=== PATIENT | female | born 1965 | race Caucasian/White ===

== ENCOUNTER 2020-11-08 17:06 | Emergency (ER) | payer MEDICARE, OTHER ==
[~2020-11-08 17:06] MED LIST: ADVAIR HFA 115-28 GM INH; ADVAIR HFA 115/12 GM INH; ALBUTEROL1.25 MG/3 INH; ASPIR-TRIN325 MG PO; BIOTIN10 MG PO; BOTOX INJ 1100 UNITS IM; CALAN SR180 MG PO; CETIRIZINE HCL10 M1 PO; COLACE 100MG C100 MG PO; CYMBALTA 30 MG30 MG PO; CYMBALTA60 MG PO; CYTOTEC 100 M100 MCG PO; ECOTRIN81 MG PO; EMGALITY S120 MG/1 M SQ; HUMIRA40 MG/0.8 SQ; IMDUR ER TAB 3030 MG PO; IMITREX100 MG PO; IMITREX6 MG/0.51 SC; LEFLUNOMIDE10 MG PO; LEVOTHYROXINE25 MCG PO; LOPRESSOR 25 MG25 MG PO; LOPRESSOR HCT1 EACH PO; NEURONTIN 300300 MG PO; NITROSTAT0.4 MG SL; NORCO 10-325 T1 EACH PO; OMEPRAZOLE20 M1 PO; ONE DAILY FOR1 EAC3 PO; PATADAY2.5 ML OP; PHENERGAN 25 MG25 M1 PO; PLAQUENIL200 MG PO; PRAVACHOL20 MG PO; PROAIR HFA8.5 GM INH; PROTONIX40 MG PO; RANEXA1000 MG PO; REGLAN10 MG PO; SINGULAIR10 MG PO; TRICOR48 MG PO; VALIUM 2 MG TAB2 MG PO; VENTOLIN/PROVE0.5 ML INH; VIBRAMYCIN100 MG PO; ZANAFLEX4 MG PO; ZANTAC150 MG PO; ZOFRAN 8 MG TAB8 MG PO; ZOFRAN4 MG PO
[2020-11-08 18:15] LABS: HEMOGLOBIN 12.7 gm/dl (12.3-15.3); RED BLOOD COUNT 3.88 M/UL (4.00-5.10); WHITE BLOOD COUNT 5.5 K/UL (4.5-11.0)
[2020-11-08 18:41] LABS: BUN/CREATININE RATIO 13 (0-10)
== END 2020-11-08 22:43 | disposition home or self-care (01) ==
LOC: ER1 17:06
PROVIDERS: Physician Assistant
DX: R06.02 Shortness of breath (principal); R22.32 Localized swelling, mass and lump, left upper limb; R79.89 Other specified abnormal findings of blood chemistry; Z20.822 Contact with and (suspected) exposure to COVID-19; I50.9 Heart failure, unspecified; G43.909 Migraine, unspecified, not intractable, without status migrainosus; Z88.0 Allergy status to penicillin
CPT/HCPCS: 71045; 80053; 83880; 85025; 85379; 96372; 99284; J1650; Q9967; U0002

== ENCOUNTER → 2020-11-09 | Outpatient (CLI) | payer MEDICARE, OTHER ==
[~2020-11-09] MED LIST changes: +ZOFRAN ODT 4 MG4 MG PO
== END ==
LOC: US 14:37
DX: R22.33 Localized swelling, mass and lump, upper limb, bilateral (principal)
CPT/HCPCS: 93970

== ENCOUNTER 2020-12-11 12:24 | Emergency (ER) | payer MEDICARE, OTHER ==
[~2020-12-11 12:24] MED LIST changes: -ZOFRAN ODT 4 MG4 MG PO
[2020-12-11 13:18] LABS: HEMOGLOBIN 15.9 gm/dl (12.3-15.3); RED BLOOD COUNT 4.79 M/UL (4.00-5.10); WHITE BLOOD COUNT 9.7 K/UL (4.5-11.0)
[2020-12-11 13:38] LABS: BUN/CREATININE RATIO 31 (0-10)
[2020-12-11] MEDS ORDERED: ZOFRAN ODT 4 MG4 MG PO (16:54)
== END 2020-12-11 17:30 | disposition home or self-care (01) ==
LOC: ER1 12:24
PROVIDERS: Physician Assistant Medical
DX: K52.9 Noninfective gastroenteritis and colitis, unspecified (principal); Z20.822 Contact with and (suspected) exposure to COVID-19
CPT/HCPCS: 71045; 80053; 82550; 82553; 83690; 83874; 84484; 85025; 93005; 96374; 96375; 99284; J2270; J2405; Q9967; U0002

== ENCOUNTER 2021-11-10 16:56 | Emergency (ER) | payer MEDICARE, OTHER ==
[~2021-11-10 16:56] MED LIST changes: +ZOFRAN ODT 4 MG4 MG PO
[2021-11-10 17:31] LABS: RED BLOOD COUNT 3.65 M/UL (4.00-5.10); WHITE BLOOD COUNT 5.1 K/UL (4.5-11.0)
[2021-11-10 17:54] LABS: BUN/CREATININE RATIO 12 (0-10)
[2021-11-10] MEDS ORDERED: HYDROCODON-ACE1 EAC4 PO (21:40)
[2021-11-10] MEDS ORDERED: CIPRO500 MG PO (21:42)
[2021-11-10] MEDS ORDERED: METRONIDAZOLE500 MG PO (21:42)
== END 2021-11-10 21:59 | disposition home or self-care (01) ==
LOC: ER1 16:56
PROVIDERS: Nurse Practitioner
DX: K57.32 Diverticulitis of large intestine without perforation or abscess without bleeding (principal); R30.0 Dysuria; Z87.442 Personal history of urinary calculi
CPT/HCPCS: 80053; 81001; 85025; 87086; 96374; 96375; 99284; J1170; J1885; Q9967